=== PATIENT | female | born 1990 ===

== ENCOUNTER 2017-09-16 17:00 | Emergency (ER) | payer OTHER ==
[~2017-09-16 17:00] MED LIST: SERT-1 PO; SUMA50TA34 PO; ZOLP-1 PO
[2017-09-16] MEDS ORDERED: APAP/HYDROCODONE 325/5 TAB PO ONE (17:10)
--- NOTE | 2017-09-16 17:16 | ER Report ---
History and Physical Time Seen By MD: 17:05 Hx. of Stated Complaint: Patient with right knee pain after ski accident HPI/ROS CHIEF COMPLAINT: r knee pain HISTORY OF PRESENT ILLNESS: PT was skiing in [place] and fell. PT twisted her right knee when she fell. Did have on a helmet. no numbness down the leg. + pain medial aspect of knee. PT is able to move the knee. REVIEW OF SYSTEMS: Neuro: no numbness, no loc Musculoskeletal: No back pain. + right knee pain Allergies: Coded Allergies: nitrofurantoin (Verified Allergy, Mild, FEVER, 09/16/17) Home Meds Reported Medications Sumatriptan Succinate (IMITREX) 50 Mg Tablet, 50 MG PO ONCE Y for PRN 12/23/16 Zolpidem Tartrate (AMBIEN) 5 Mg Tablet, 1 TAB PO QHS Y for PRN, TAB 12/23/16 Sertraline Hcl (ZOLOFT) 50 Mg Tablet, 1.5 TAB PO QDAY, TAB 12/23/16 Past Medical/Surgical History Pmhx and PShx: non contribuitory Reviewed Nurses Notes: Yes Old Medical Records Reviewed: No Hx Substance Use Disorder: Yes ([facility]) Constitutional Vital Sign - Last 24 Hours 09/16/17 17:05 Temp 97.5 Pulse 57 Resp 18 B/P (MAP) 106/63 Pulse Ox 95 O2 Delivery Room Air Physical Exam General Appearance: The patient is alert, has no immediate need for airway protection and no signs of toxicity. Eyes: Pupils equal and round no pallor or injection, EOMI ENT: no pharyngeal erythema or exudates, Mucous membranes are moist, TM are nl b/l, neg hemotympanums Respiratory: There are no retractions, lungs are clear to auscultation. Cardiovascular: Regular rate and rhythm. pulses are equal and symmetrical Gastrointestinal: Abdomen is soft and non tender, no masses, bowel sounds normal, no guarding, no rigidity or rebound Neurological: Cranial nerves II-XII grossly intact Skin: Warm and dry, no rashes. Musculoskeletal: Neck is supple non tender, no vertebral tenderness Extremities are nontender, non swollen and have full range of motion with accept of right knee which has joint line tenderness medial aspect of right knee , no laxity with draw, valgus or varus testing however had pain with the valgus on medial aspect DIFFERENTIAL DIAGNOSIS: After history and physical exam differential diagnosis was considered for ligment/meniscal damage; fx Medical Decision Making EKG/Imaging Imaging no fracture evident ED Course/Re-evaluation ED Course will xray 09/16/2017 5:45:24 pm no fx. Pt could have meniscal or MCL tear. will place in immobilizer and will need to see ortho Decision to Disposition Date: Sep 16, 2017 Decision to Disposition Time: 17:51 Depart Departure Latest Vital Signs Vital Signs Date Time Temp Pulse Resp B/P (MAP) Pulse Ox O2 Delivery O2 Flow Rate FiO2 09/16/17 17:05 97.5 57 18 106/63 95 Room Air Impression: Primary Impression: Knee injury Condition: Improved Disposition: HOME OR SELF-CARE Referrals: JANELLE SEXTON MD 2 Days [facility] New Scripts Hydrocodone Bit/Acetaminophen (HYDROCODON-ACETAMINOPHEN 5-325) 1 Each Tablet 1 EACH PO Q4-6H Y for PAIN, #10 TAB Prov: AKILA HIGHTOWER DO 09/16/17 Patient Instructions: Knee Sprain (GEN) Additional Instructions: Your xray today did not show any bone fracture. You may have hurt a ligament or meniscus which you do not see on xray. It is important that you follow up with orthopedics. Motrin (advil, ibuprofen) 600mg every 6 hours as needed for pain. Tylenol 650mg every 4 hours as needed for pain. Lortab (narcotic) one every 6 hours for severe pain only. Ice, elevate and rest your knee Problem Qualifiers Primary Impression: Knee injury Encounter type: initial encounter Laterality: right Qualified Codes: S89.91XA - Unspecified injury of right lower leg, initial encounter AKILA HIGHTOWER DO Sep 16, 2017 17:16
--- NOTE | 2017-09-16 17:38 | RADIOLOGY IMAGING REPORT ---
FACILITY: [facility] - [place] PATIENT NAME: Cheyr Crawford : 1990 MR: [id number] V: [id number] EXAM DATE: ORDERING PHYSICIAN: AKILA HIGHTOWER TECHNOLOGIST: Location: [facility] - [place] Patient: Chery Crawford : 1990 Visit/Account:[id number] Date of Sevice: 09/16/2017 Examination: KNEE 4 VIEW RIGHT Comparison: None. History: Knee pain. Skiing accident. Findings: No fracture. Alignment and joint spaces are within normal limits. No joint effusion. Soft t issues are unremarkable. IMPRESSION: Negative right knee. Report Dictated By: Toñito Ureña MD at 09/16/2017 5:33 PM Report E-Signed By: Toñito Ureña MD at 09/16/2017 5:35 PM WSN:[id number]
[2017-09-16 17:45] VITALS: BP 116/80
[2017-09-16] MEDS ORDERED: LOR5/325 PO (17:53)
== END 2017-09-16 18:02 | disposition home or self-care (01) ==
LOC: ER 17:10
DX: S89.91XA Unspecified injury of right lower leg, initial encounter (principal); W00.0XXA Fall on same level due to ice and snow, initial encounter; Y93.23 Activity, snow (alpine) (downhill) skiing, snowboarding, sledding, tobogganing and snow tubing
CPT/HCPCS: 73564; 99283; L1830

== ENCOUNTER → 2018-03-22 | Outpatient (CLI) | payer OTHER ==
[~2018-03-22] MED LIST changes: +LOR5/325 PO
--- NOTE | 2018-03-22 12:31 | RADIOLOGY IMAGING REPORT ---
[place] [facility] [place] Chery Crawford : 1990 MR: [id number] V: [id number] EXAM DATE: ORDERING PHYSICIAN: KAITLYNN CERVANTES TECHNOLOGIST: Location: [facility] - [place] Patient: Chery Crawford : 1990 Visit/Account:[id number] Date of Sevice: 03/22/2018 Transabdominal and transvaginal pelvic ultrasound INDICATION: Right pelvic pain. COMPARISON: None Available FINDINGS: Left ovary not visualized on transabdominal exam. Therefore transvaginal exam was performed . Uterus measures 6.8 x 3.8 x 5.3 cm. The uterus is retroverted and homogeneous. No focal abnormality. Double wall endometrial stripe measures 5.2 mm and homogeneous. No fluid or focal normality. IUD appe ars to be in good position. There is no free fluid in the cul-de-sac. Urinary bladder is empty. Pelvic vessels appear unremarkable on this examination. Right ovary measures 4.3 x 3.6 x 1.6 cm and shows normal blood flow and contains several small follic les. Left ovary measures 2.4 x 3.9 x 1.3 cm and shows normal blood flow and contains several small follicl es. No adnexal masses. IMPRESSION: 1. Unremarkable pelvic ultrasound. IUD appears to be in good position. Report Dictated By: Stevie Curtis at 03/22/2018 12:26 PM Report E-Signed By: Stevie Curtis at 03/22/2018 12:28 PM WSN:[id number]
== END ==
LOC: US 04:02
PROVIDERS: ATTEND Nurse Practitioner Family
DX: R10.31 Right lower quadrant pain (principal); Z97.5 Presence of (intrauterine) contraceptive device
CPT/HCPCS: 76830; 76856